=== PATIENT | female | born 1995 | race American Indian/Alaskan Native ===

== ENCOUNTER 2017-12-26 17:19 | Inpatient (IN) | payer OTHER ==
[2017-12-26] MEDS ORDERED: Oxycodone/Acetaminophen 5/325 mg Tab PO STA (17:55)
[2017-12-26] MEDS ORDERED: Piperacillin/Tazobact 3.375 gm 100 ML IV STA (17:55)
[2017-12-26] MEDS ORDERED: Sodium Chloride 0.9% 1,000 ML IV ONE (17:55)
--- NOTE | 2017-12-26 18:00 | C.PDOC ---
History Of Present Illness 22 y/o female presents to the ED for evaluation after being sent from Dr. Morales's office. Patient was evaluated for a painful swelling at the intergluteal fold region and was diagnosed with a pilonidal cyst. She presents to the ED for admission, antibiotics and is pending surgery. Patient states she took Motrin earlier today and is asking for something "stronger." She denies fever and chills at this time. Time Seen by Provider: 12/26/17 17:46 Chief Complaint (Nursing): Abnormal Skin Integrity History Per: Patient History/Exam Limitations: no limitations Onset/Duration Of Symptoms: Days Current Symptoms Are (Timing): Still Present Quality Of Symptoms: Painful, Swollen Additional History Per: Patient Past Medical History Reviewed: Historical Data, Nursing Documentation, Vital Signs Vital Signs: Last Vital Signs Temp 98 F 12/26/17 17:24 Pulse 109 H 12/26/17 17:24 Resp 20 12/26/17 17:24 BP 133/76 12/26/17 17:24 Pulse Ox 100 12/26/17 20:08 - Medical History PMH: No Chronic Diseases Denies: Chronic Kidney Disease Surgical History: No Surg Hx Family History: States: Unknown Family Hx - Social History Hx Alcohol Use: Yes Hx Substance Use: No Review Of Systems Constitutional: Negative for: Fever, Chills Skin: Positive for: Other (pilonidal cyst at intergluteal fold ) Physical Exam - Physical Exam Appears: Non-toxic, No Acute Distress, Other (morbidly obese ) Skin: Normal Color, Warm, Dry, Other (enlarged 8x8cm area in intergluteal cleft that is pouting red with white head ) Extremity: Normal ROM, Capillary Refill (less than 2 seconds ) Neurological/Psych: Oriented x3, Normal Speech, Normal Cognition ED Course And Treatment - Laboratory Results Result Diagrams: 12/26/17 18:32 12/26/17 18:32 Lab Interpretation: Abnormal (ua neg, tox + THC) Urine POC: Negative O2 Sat by Pulse Oximetry: 100 (on RA) Pulse Ox Interpretation: Normal Progress Note: Bloodwork, urinalysis, CT A/P ordered and reviewed. Percocet PO , Zosyn IV, and IV fluids administered. Medical Decision Making Medical Decision Making: discussion pt: pt complained of "not being direct admitted" and "expecting morphine upon arrival" Pt argumentative, asking to complain and be transferred to another facility Nursing and Rep's aware Though pt understood pending surgery in AM, pt's expectation of "direct admission" and her discontent w a hallway bed despite admission orders placed immediately after evaluation are difficult to satisfy to pt's expectations. Multiple re-visits w pt and mother @ bedside, and verbally abusive with this MD will preclude re-visits in ED Asked what she has taken for pain so far today, answered "Motmasha" Asked what may I offer her for pain relief, "I don't know" so Percocet suggested and ordered. After given percocet pt demanding morphine (which she did not specify during initial eval) Will defer double narcotics dosing in ED pending therapeutic effects of Percocet and UA/UDS/U-Preg which pt has not provided but has been requested. 1800: d/w Dr. Hemphill, ok to admit, specifies Zosyn. [id number] failed attempts to contact Computer System Technician to eval this Surgical pt- 1900: Dr Hemphill aware 2100: pt pending bed assignment. sleeping in HW1 bed A/P Tolerated Percocet and Zosyn well consider tox + THC pt's behavior in ED may be related to substance abuse, and misalligned expectations of ED experience. Disposition Doctor Will See Patient In The: Hospital Counseled Patient/Family Regarding: Studies Performed, Diagnosis - Disposition Disposition: HOSPITALIZED Disposition Time: 21:00 Condition: GOOD - Clinical Impression Clinical Impression: Pilonidal cyst with abscess, Cannabis abuse - Scribe Statement The provider has reviewed the documentation as recorded by the Scribe (jessica Mejia) Provider Attestation: All medical record entries made by the Scribe were at my direction and personally dictated by me. I have reviewed the chart and agree that the record accurately reflects my personal performance of the history, physical exam, medical decision making, and the department course for this patient. I have also personally directed, reviewed, and agree with the discharge instructions and disposition.
[2017-12-26] MEDS ORDERED: Oxycodone/Acetaminophen 5/325 mg Tab ONE (18:12)
[2017-12-26 18:40] LABS: BASO % 0.2 % (0.0-2.0); EOS # 0.1 K/uL (0.0-0.7); EOS % 0.8 % (0.0-4.0); HEMOGLOBIN 12.4 g/dL (11.0-16.0); LYMPH # 1.4 K/uL (1.0-4.3); LYMPH % 8.5 % (20.0-40.0); MEAN CELL VOLUME 86.6 fL (81.0-99.0); MEAN CORPUSCULAR HEMOGLOBIN 29.4 pg (27.0-31.0); MEAN PLATELET VOLUME 9.4 fL (7.2-11.7); MONO # 1.2 K/uL (0.0-0.8); NEUT # 13.8 K/uL (1.8-7.0); NEUT % 83.5 % (50.0-75.0); PLATELET COUNT 242 K/uL (130-400); RBC 4.22 Mil/uL (3.80-5.20); RED CELL DISTRIBUTION WIDTH 12.7 % (11.5-14.5); WHITE BLOOD COUNT 16.5 K/uL (4.8-10.8)
[2017-12-26 18:49] LABS: INR 1.3; PROTHROMBIN TIME 15.1 SECONDS (9.7-12.2)
[2017-12-26 18:50] LABS: ALB/GLOB RATIO 0.9 (1.0-2.1); ALBUMIN 3.9 g/dL (3.5-5.0); ALT/SGPT 21 U/L (9-52); AST/SGOT 18 U/L (14-36); BLOOD UREA NITROGEN 11 mg/dL (7-17); CALCIUM 8.9 mg/dl (8.6-10.4); GFR AFRICAN-AMERICAN > 60; GFR NON-AFRICAN AMERICAN > 60; LIPASE 26 U/L (23-300)
[2017-12-26 19:07] LABS: BANDS 1 % (0-2); EOSINOPHIL 2 % (0-4); LYMPHOCYTE 5 % (20-40); MONOCYTE 9 % (0-10); NEUTROPHIL 83 % (50-75); PLATELET ESTIMATE NORMAL (NORMAL); TOTAL CELLS COUNTED 100
[2017-12-26] MEDS ORDERED: Sodium Chloride 0.9% 1,000 ML ONE (19:08)
[2017-12-26] MEDS ORDERED: Iohexol 300 100 ML IJ ONE (19:56)
[2017-12-26] MEDS ORDERED: Piperacill/Tazo 3.375gm in Dex 3.375 GM/50 ML BAG IVPB ONE (20:00)
[2017-12-26 20:17] LABS: HCG,QUALITATIVE URINE NEGATIVE (NEGATIVE); SQUAMOUS EPITHIAL 9 /hpf (0-5); URINE BILIRUBIN NEGATIVE (NEGATIVE); URINE BLOOD 2+ (NEGATIVE); URINE CLARITY Hazy (Clear); URINE COLOR Yellow (YELLOW); URINE GLUCOSE (UA) NORMAL (Normal); URINE LEUKOCYTE ESTERASE NEG Leu/uL (Negative); URINE NITRATE NEGATIVE (NEGATIVE); URINE PROTEIN 1+ mg/dL (NEGATIVE)
[2017-12-26 20:39] LABS: BARBITURATES, UR NEGATIVE (NEGATIVE); BENZODIAZEPINES, UR NEGATIVE (NEGATIVE); OPIATES, UR NEGATIVE (NEGATIVE); PHENCYCLIDINE, UR NEGATIVE (NEGATIVE)
--- NOTE | 2017-12-26 21:41 | CP.PCM.CON ---
<Abby Garcia - Last Filed: 12/26/17 21:37> History of Present Illness - History of Present Illness History of Present Illness: General Surgery Dr. Morales 22 y/o F w/ PMHx of Pilonidal cyst presents to the ED at the direction of Dr. Morales. Pt was seen in office today and was found to have recurrent pilonidal cyst. Pt Instructed to go to the ED for admission w/ surgery planned for tomorrow, Saturday. Pt c/o pain at site w/ redness and swelling. Pt denies any drainage. Per pt, this episode is worse than the previous cyst. PMHX: see above NKDA Meds: reviewed in chart PSHx: I&D of pilonidal cyst SHx: denies tobacco, EtOH, drug use FHx: non-contributory Review of Systems - Review of Systems All systems: reviewed and no additional remarkable complaints except (see HPI) Past Patient History - Past Social History Smoking Status: Light Smoker < 10 Cigarettes Daily - CARDIAC Hx Cardiac Disorders: No - PULMONARY Hx Respiratory Disorders: No - HEENT Hx HEENT Problems: No - RENAL Hx Chronic Kidney Disease: No - ENDOCRINE/METABOLIC Hx Endocrine Disorders: No - HEMATOLOGICAL/ONCOLOGICAL Hx Blood Disorders: No - INTEGUMENTARY Hx Dermatological Problems: Yes - MUSCULOSKELETAL/RHEUMATOLOGICAL Hx Musculoskeletal Disorders: No - GASTROINTESTINAL Hx Gastrointestinal Disorders: No - GENITOURINARY/GYNECOLOGICAL Hx Genitourinary Disorders: No - PSYCHIATRIC Hx Substance Use: No - SURGICAL HISTORY Hx Surgeries: No - ANESTHESIA Hx Anesthesia: No Meds Allergies/Adverse Reactions: Allergies Allergy/AdvReac Type Severity Reaction Status Date / Time No Known Allergies Allergy Verified 12/26/17 17:27 Physical Exam - Constitutional Appears: Non-toxic, No Acute Distress - Head Exam Head Exam: NORMAL INSPECTION - Eye Exam Eye Exam: Normal appearance - ENT Exam ENT Exam: Mucous Membranes Moist - Respiratory Exam Respiratory Exam: NORMAL BREATHING PATTERN. absent: Accessory Muscle Use, Respiratory Distress - GI/Abdominal Exam GI & Abdominal Exam: Soft. absent: Tenderness - Rectal Exam Additional comments: (+)fluctuance, erythema, induration above gluteal cleft no sinus or drainage noted - Extremities Exam Extremities exam: Positive for: normal inspection - Neurological Exam Neurological exam: Alert, Oriented x3 - Psychiatric Exam Psychiatric exam: Normal Affect, Normal Mood - Skin Skin Exam: Dry, Intact, Warm Results - Vital Signs Recent Vital Signs: Last Vital Signs Temp 98 F 12/26/17 17:24 Pulse 109 H 12/26/17 17:24 Resp 20 12/26/17 17:24 BP 133/76 12/26/17 17:24 Pulse Ox 100 12/26/17 21:29 - Labs Result Diagrams: 12/26/17 18:32 12/26/17 18:32 Labs: Laboratory Results - last 24 hr 12/26/17 12/26/17 12/26/17 18:32 18:32 18:32 WBC 16.5 H RBC 4.22 Hgb 12.4 Hct 36.6 MCV 86.6 MCH 29.4 MCHC 34.0 RDW 12.7 Plt Count 242 MPV 9.4 Neut % (Auto) 83.5 H Lymph % (Auto) 8.5 L [place] % (Auto) 7.0 Eos % (Auto) 0.8 Baso % (Auto) 0.2 Neut # (Auto) 13.8 H Lymph # (Auto) 1.4 [place] # (Auto) 1.2 H Eos # (Auto) 0.1 Baso # (Auto) 0.0 Neutrophils % (Manual) 83 H Band Neutrophils % 1 Lymphocytes % (Manual) 5 L Monocytes % (Manual) 9 Eosinophils % (Manual) 2 Platelet Estimate Normal PT 15.1 H INR 1.3 APTT 29 Sodium 137 Potassium 3.9 Chloride 98 Carbon Dioxide 28 Anion Gap 15 BUN 11 Creatinine 0.7 Est GFR ( Amer) > 60 Est GFR (Non-Af Amer) > 60 Random Glucose 115 H Calcium 8.9 Total Bilirubin 0.6 AST 18 ALT 21 Alkaline Phosphatase 51 Total Protein 8.1 Albumin 3.9 Globulin 4.3 H Albumin/Globulin Ratio 0.9 L Lipase 26 Urine Color Urine Clarity Urine pH Ur Specific [place] Urine Protein Urine Glucose (UA) Urine Ketones Urine Blood Urine Nitrate Urine Bilirubin Urine Urobilinogen Ur Leukocyte Esterase Urine WBC (Auto) Urine RBC (Auto) Ur Squamous Epith Cells Urine HCG, Qual Urine Opiates Screen Urine Methadone Screen Ur Barbiturates Screen Ur Phencyclidine Scrn Ur Amphetamines Screen U Benzodiazepines Scrn U Oth Cocaine Metabols U Cannabinoids Screen 12/26/17 12/26/17 20:08 20:08 WBC RBC Hgb Hct MCV MCH MCHC RDW Plt Count MPV Neut % (Auto) Lymph % (Auto) [place] % (Auto) Eos % (Auto) Baso % (Auto) Neut # (Auto) Lymph # (Auto) [place] # (Auto) Eos # (Auto) Baso # (Auto) Neutrophils % (Manual) Band Neutrophils % Lymphocytes % (Manual) Monocytes % (Manual) Eosinophils % (Manual) Platelet Estimate PT INR APTT Sodium Potassium Chloride Carbon Dioxide Anion Gap BUN Creatinine Est GFR ( Amer) Est GFR (Non-Af Amer) Random Glucose Calcium Total Bilirubin AST ALT Alkaline Phosphatase Total Protein Albumin Globulin Albumin/Globulin Ratio Lipase Urine Color Yellow Urine Clarity Hazy Urine pH 5.0 Ur Specific [place] 1.034 H Urine Protein 1+ H Urine Glucose (UA) Normal Urine Ketones Negative Urine Blood 2+ H Urine Nitrate Negative Urine Bilirubin Negative Urine Urobilinogen 4.0 H Ur Leukocyte Esterase Neg Urine WBC (Auto) 8 H Urine RBC (Auto) 18 H Ur Squamous Epith Cells 9 H Urine HCG, Qual Negative Urine Opiates Screen Negative Urine Methadone Screen Negative Ur Barbiturates Screen Negative Ur Phencyclidine Scrn Negative Ur Amphetamines Screen Negative U Benzodiazepines Scrn Negative U Oth Cocaine Metabols Negative U Cannabinoids Screen Positive H - Imaging and Cardiology CT scan - abdomen Status: Pending Assessment & Plan - Assessment and Plan (Free Text) Assessment: 22 y/o F w/ pilonidal cyst - NPO after MN - IVF - IV Abx - pain management - anti-emetic - monitor vitals - OR Saturday for I&D of pilonidal cyst Pt discussed w/ Dr. Morales <Edison Morales - Last Filed: 12/29/17 18:31> Results - Vital Signs Recent Vital Signs: Last Vital Signs Temp 98.4 F 12/29/17 08:00 Pulse 72 12/29/17 08:00 Resp 20 12/29/17 08:00 BP 112/68 12/29/17 08:00 Pulse Ox 100 12/29/17 08:00 - Labs Result Diagrams: 12/28/17 11:35 12/28/17 11:35 Attending/Attestation - Attestation I have personally seen and examined this patient.: Yes I have fully participated in the care of the patient.: Yes I have reviewed all pertinent clinical information: Yes Notes (Text): Pt was seen and examined at bedside Agree with above note and assessment Pt with Gluteal pain and severe tenderness Labs and radiology reviewed Ass: Pilonidal cyst abscess with severe cellulitis OR for I & D and Debridement of cyst absces Consnet NPO, IVF IV antibiotics Plan d.w pt in detail Risk and benefit explained in detail.
[2017-12-26] MEDS ORDERED: Oxycodone/Acetaminophen 5/325 mg Tab PO PRN (21:45)
[2017-12-26] MEDS ORDERED: Piperacillin/Tazobact 3.375 GM in Sodium Chloride 100 ML IVPB SCH (22:00)
[2017-12-26] MEDS: HYDROmorphone 0.5 mg/0.5 ml ISec IVP PRN (22:19)
[2017-12-26] MEDS: Sodium Chloride 0.9% 1,000 ML IV SCH (22:20)
[2017-12-26] MEDS ORDERED: metroNIDAZOLE IV 500 mg/100 ml 500 MG/100 ML BAG ONE (22:23)
--- NOTE | 2017-12-26 22:26 | CT ---
EXAM: CT Abdomen and Pelvis With Intravenous Contrast CLINICAL HISTORY: 22 years old, female; Signs and symptoms; Mass, lump, or swelling; Other: Butock region; Additional info: Abd pain, abn lft's, weight loss/ anemia, ? ca TECHNIQUE: Axial computed tomography images of the abdomen and pelvis with intravenous contrast. All CT scans at this facility use one or more dose reduction techniques, viz.: automated exposure control; ma/kV adjustment per patient size (including targeted exams where dose is matched to indication; i.e. head); or iterative reconstruction technique. Coronal and sagittal reformatted images were created and reviewed. CONTRAST: 100 mL of omnipaque 300 administered intravenously. COMPARISON: No relevant prior studies available. FINDINGS: Lower thorax: Minimal atelectasis. ABDOMEN: Liver: Unremarkable. No mass. Gallbladder and bile ducts: No calcified stones. No ductal dilation. Pancreas: No ductal dilation. No mass. Spleen: No splenomegaly. Adrenals: No mass. Kidneys and ureters: No mass. No hydronephrosis. Stomach and bowel: No definite mural thickening. No obstruction. Appendix: No findings to suggest acute appendicitis. PELVIS: Bladder: Unremarkable. Reproductive: Unremarkable as visualized. ABDOMEN and PELVIS: Intraperitoneal space: No significant fluid collection. No free air. Bones/joints: No acute fracture. Soft tissues: 4.2 x 6.2 x 5.8 cm peripherally enhancing fluid collection within midline posterior pelvic wall. [id number] stranding within adjacent fat. Mild overlying skin thickening. Mild dependent fluid within subcutaneous tissues posterior abdominal/pelvic wall. Vasculature: Unremarkable. No aneurysm. Lymph nodes: No pathologically enlarged lymph nodes. IMPRESSION: 1. Findings compatible with abscess within posterior pelvic wall. DDX: Hematoma, cystic neoplasm. Clinical correlation is needed. 2. Incidental/non-acute findings are described above.
[2017-12-26] MEDS: metroNIDAZOLE IV 500 mg/100 ml 500 MG/100 ML BAG IVPB SCH (22:47)
--- NOTE | 2017-12-27 00:39 | CP.PCM.HP ---
<Abby Garcia - Last Filed: 12/27/17 00:35> History of Present Illness - History of Present Illness History of Present Illness: General Surgery Dr. Morales 22 y/o F w/ PMHx of Pilonidal cyst presents to the ED at the direction of Dr. Morales. Pt was seen in office today and was found to have recurrent pilonidal cyst. Pt Instructed to go to the ED for admission w/ surgery planned for tomorrow, Saturday. Pt c/o pain at site w/ redness and swelling. Pt denies any drainage. Per pt, this episode is worse than the previous cyst. PMHX: see above NKDA Meds: reviewed in chart PSHx: I&D of pilonidal cyst SHx: denies tobacco, EtOH, drug use FHx: non-contributory Present on Admission - Present on Admission Any Indicators Present on Admission: No Review of Systems - Review of Systems All systems: reviewed and no additional remarkable complaints except (See HPI) Past Patient History - Past Social History Smoking Status: Light Smoker < 10 Cigarettes Daily - CARDIAC Hx Cardiac Disorders: No - PULMONARY Hx Respiratory Disorders: No - HEENT Hx HEENT Problems: No - RENAL Hx Chronic Kidney Disease: No - ENDOCRINE/METABOLIC Hx Endocrine Disorders: No - HEMATOLOGICAL/ONCOLOGICAL Hx Blood Disorders: No - INTEGUMENTARY Hx Dermatological Problems: Yes - MUSCULOSKELETAL/RHEUMATOLOGICAL Hx Musculoskeletal Disorders: No - GASTROINTESTINAL Hx Gastrointestinal Disorders: No - GENITOURINARY/GYNECOLOGICAL Hx Genitourinary Disorders: No - PSYCHIATRIC Hx Substance Use: No - SURGICAL HISTORY Hx Surgeries: No - ANESTHESIA Hx Anesthesia: No Meds Allergies/Adverse Reactions: Allergies Allergy/AdvReac Type Severity Reaction Status Date / Time No Known Allergies Allergy Verified 12/26/17 17:27 Physical Exam - Constitutional Appears: Non-toxic, No Acute Distress - Head Exam Head Exam: NORMAL INSPECTION - Eye Exam Eye Exam: Normal appearance - ENT Exam ENT Exam: Mucous Membranes Moist - Respiratory Exam Respiratory Exam: NORMAL BREATHING PATTERN. absent: Accessory Muscle Use, Respiratory Distress - GI/Abdominal Exam GI & Abdominal Exam: Soft. absent: Tenderness - Rectal Exam Additional comments: (+)fluctuance, erythema, induration above gluteal cleft no sinus or drainage noted - Extremities Exam Extremities exam: Positive for: normal inspection - Neurological Exam Neurological exam: Alert, Oriented x3 - Psychiatric Exam Psychiatric exam: Normal Affect, Normal Mood - Skin Skin Exam: Dry, Intact, Normal Color, Warm Results - Vital Signs Recent Vital Signs: Last Vital Signs Temp 98 F 12/26/17 17:24 Pulse 91 H 12/26/17 21:00 Resp 16 12/26/17 21:00 BP 106/66 12/26/17 21:00 Pulse Ox 100 12/26/17 21:29 - Labs Result Diagrams: 12/26/17 18:32 12/26/17 18:32 Labs: Laboratory Results - last 24 hr 12/26/17 12/26/17 12/26/17 18:32 18:32 18:32 WBC 16.5 H RBC 4.22 Hgb 12.4 Hct 36.6 MCV 86.6 MCH 29.4 MCHC 34.0 RDW 12.7 Plt Count 242 MPV 9.4 Neut % (Auto) 83.5 H Lymph % (Auto) 8.5 L [place] % (Auto) 7.0 Eos % (Auto) 0.8 Baso % (Auto) 0.2 Neut # (Auto) 13.8 H Lymph # (Auto) 1.4 [place] # (Auto) 1.2 H Eos # (Auto) 0.1 Baso # (Auto) 0.0 Neutrophils % (Manual) 83 H Band Neutrophils % 1 Lymphocytes % (Manual) 5 L Monocytes % (Manual) 9 Eosinophils % (Manual) 2 Platelet Estimate Normal PT 15.1 H INR 1.3 APTT 29 Sodium 137 Potassium 3.9 Chloride 98 Carbon Dioxide 28 Anion Gap 15 BUN 11 Creatinine 0.7 Est GFR ( Amer) > 60 Est GFR (Non-Af Amer) > 60 Random Glucose 115 H Calcium 8.9 Total Bilirubin 0.6 AST 18 ALT 21 Alkaline Phosphatase 51 Total Protein 8.1 Albumin 3.9 Globulin 4.3 H Albumin/Globulin Ratio 0.9 L Lipase 26 Urine Color Urine Clarity Urine pH Ur Specific [place] Urine Protein Urine Glucose (UA) Urine Ketones Urine Blood Urine Nitrate Urine Bilirubin Urine Urobilinogen Ur Leukocyte Esterase Urine WBC (Auto) Urine RBC (Auto) Ur Squamous Epith Cells Urine HCG, Qual Urine Opiates Screen Urine Methadone Screen Ur Barbiturates Screen Ur Phencyclidine Scrn Ur Amphetamines Screen U Benzodiazepines Scrn U Oth Cocaine Metabols U Cannabinoids Screen 12/26/17 12/26/17 20:08 20:08 WBC RBC Hgb Hct MCV MCH MCHC RDW Plt Count MPV Neut % (Auto) Lymph % (Auto) [place] % (Auto) Eos % (Auto) Baso % (Auto) Neut # (Auto) Lymph # (Auto) [place] # (Auto) Eos # (Auto) Baso # (Auto) Neutrophils % (Manual) Band Neutrophils % Lymphocytes % (Manual) Monocytes % (Manual) Eosinophils % (Manual) Platelet Estimate PT INR APTT Sodium Potassium Chloride Carbon Dioxide Anion Gap BUN Creatinine Est GFR ( Amer) Est GFR (Non-Af Amer) Random Glucose Calcium Total Bilirubin AST ALT Alkaline Phosphatase Total Protein Albumin Globulin Albumin/Globulin Ratio Lipase Urine Color Yellow Urine Clarity Hazy Urine pH 5.0 Ur Specific [place] 1.034 H Urine Protein 1+ H Urine Glucose (UA) Normal Urine Ketones Negative Urine Blood 2+ H Urine Nitrate Negative Urine Bilirubin Negative Urine Urobilinogen 4.0 H Ur Leukocyte Esterase Neg Urine WBC (Auto) 8 H Urine RBC (Auto) 18 H Ur Squamous Epith Cells 9 H Urine HCG, Qual Negative Urine Opiates Screen Negative Urine Methadone Screen Negative Ur Barbiturates Screen Negative Ur Phencyclidine Scrn Negative Ur Amphetamines Screen Negative U Benzodiazepines Scrn Negative U Oth Cocaine Metabols Negative U Cannabinoids Screen Positive H - Imaging and Cardiology CT scan - abdomen Status: Image reviewed by me, Report reviewed by me Assessment & Plan - Assessment and Plan (Free Text) Assessment: 22 y/o F w/ pilonidal cyst - NPO after MN - IVF - IV Abx - pain management - anti-emetic - monitor vitals - OR Saturday for I&D of pilonidal cyst Pt discussed w/ Dr. Andrew Garcia DO PGY2 - Date & Time Date: 12/26/17 Time: 20:45 <Edison Morales - Last Filed: 12/29/17 18:32> Results - Vital Signs Recent Vital Signs: Last Vital Signs Temp 98.4 F 12/29/17 08:00 Pulse 72 12/29/17 08:00 Resp 20 12/29/17 08:00 BP 112/68 12/29/17 08:00 Pulse Ox 100 12/29/17 08:00 - Labs Result Diagrams: 12/28/17 11:35 12/28/17 11:35 Attending/Attestation - Attestation I have personally seen and examined this patient.: Yes I have fully participated in the care of the patient.: Yes I have reviewed all pertinent clinical information: Yes Notes (Text): Pt was seen and examined at bedside Agree with above note and assessment Pt with Gluteal pain and severe tenderness Labs and radiology reviewed Ass: Pilonidal cyst abscess with severe cellulitis OR for I & D and Debridement of cyst absces Consnet NPO, IVF IV antibiotics Plan d.w pt in detail Risk and benefit explained in detail.
[2017-12-27] MEDS: HYDROmorphone 0.5 mg/0.5 ml ISec IVP PRN (03:14)
[2017-12-27] MEDS: Piperacill/Tazo 3.375gm in Dex 3.375 GM/50 ML BAG IVPB SCH ×4 (03:26→21:00)
[2017-12-27] MEDS ORDERED: HYDROmorphone 0.5 mg/0.5 ml ISec IVP STA (04:49)
[2017-12-27] MEDS: metroNIDAZOLE IV 500 mg/100 ml 500 MG/100 ML BAG IVPB SCH ×3 (07:00→21:28)
[2017-12-27 07:58] LABS: BASO % 0.3 % (0.0-2.0); EOS # 0.2 K/uL (0.0-0.7); HEMOGLOBIN 11.1 g/dL (11.0-16.0); LYMPH # 1.3 K/uL (1.0-4.3); LYMPH % 8.2 % (20.0-40.0); MEAN CELL VOLUME 86.8 fL (81.0-99.0); MEAN CORPUSCULAR HEMOGLOBIN 29.4 pg (27.0-31.0); MEAN CORPUSCULAR HGB CONC 33.9 g/dL (33.0-37.0); MEAN PLATELET VOLUME 9.9 fL (7.2-11.7); MONO # 1.3 K/uL (0.0-0.8); MONO % 8.5 % (0.0-10.0); NEUT # 12.6 K/uL (1.8-7.0); PLATELET COUNT 221 K/uL (130-400); RBC 3.76 Mil/uL (3.80-5.20); RED CELL DISTRIBUTION WIDTH 12.6 % (11.5-14.5); WHITE BLOOD COUNT 15.4 K/uL (4.8-10.8)
[2017-12-27 07:59] LABS: INR 1.5; PROTHROMBIN TIME 16.5 SECONDS (9.7-12.2)
[2017-12-27 08:38] LABS: BLOOD UREA NITROGEN 10 mg/dL (7-17); CALCIUM 7.8 mg/dl (8.6-10.4); GFR AFRICAN-AMERICAN > 60; GFR NON-AFRICAN AMERICAN > 60
[2017-12-27] MEDS ORDERED: ceFAZolin 1 gm in NS 0 GM/0 ML BAG IVPB ONE (09:48)
[2017-12-27] MEDS ORDERED: Bupivacaine HCl 0.25% PF (10 ml) Inj ONE ×2 (09:48→10:47)
[2017-12-27] MEDS ORDERED: Lidocaine/Epinephrine 1% 1:100000 10 ML IJ ONE ×2 (09:49→10:47)
[2017-12-27] MEDS ORDERED: ceFAZolin IV 2 gm in Dextrose 0 GM/0 ML BAG IVPB ONE (09:49)
[2017-12-27 09:55] LABS: LYMPHOCYTE 9 % (20-40); MONOCYTE 5 % (0-10); NEUTROPHIL 86 % (50-75); PLATELET ESTIMATE NORMAL (NORMAL); TOTAL CELLS COUNTED 100
[2017-12-27] MEDS ORDERED: Lactated Ringer's 1,000 ML IV ONE ×2 (10:19→10:51)
[2017-12-27] MEDS ORDERED: Midazolam 2 MG/2 ML VIAL ONE (10:23)
[2017-12-27] MEDS ORDERED: Rocuronium 10 mg/ml (5 ml) ONE (10:23)
[2017-12-27] MEDS ORDERED: Lidocaine Hydrochloride 5 ML INJ ONE (10:23)
[2017-12-27] MEDS ORDERED: Succinylcholine Chloride 20 mg/ml Syr (5 ml) IV ONE (10:23)
[2017-12-27] MEDS ORDERED: Propofol 10 mg/ml Inj (20 ML) ONE ×2 (10:23→10:45)
[2017-12-27] MEDS ORDERED: HYDROmorphone 0.5 mg/0.5 ml ISec IVP PRN (10:54)
--- NOTE | 2017-12-27 10:54 | PCM.SURG1 ---
Surgeon's Initial Post Op Note - Surgeon's Notes Surgeon: Dr. Morales Creative Director: Carly Mitchell,PGY-1 Type of Anesthesia: IV Sedation Pre-Operative Diagnosis: Pilonidal cyst and Abscess of superior gluteal cleft Operative Findings: See op report Post-Operative Diagnosis: pilonidal cyst and abscess of superior gluteal cleft Operation Performed: Incision and drainage of abscess, debridement of wound cavity Specimen/Specimens Removed: abscess wall tissue Estimated Blood Loss: EBL {In ML}: 10 Blood Products Given: N/A Drains Used: No Drains Post-Op Condition: Good Date of Surgery/Procedure: 12/27/17 Time of Surgery/Procedure: 10:54
[2017-12-27] MEDS: Sodium Chloride 0.9% 1,000 ML IV SCH ×3 (12:09→21:31)
[2017-12-28] MEDS: Sodium Chloride 0.9% 1,000 ML IV SCH ×5 (00:01→20:30)
[2017-12-28] MEDS: Piperacill/Tazo 3.375gm in Dex 3.375 GM/50 ML BAG IVPB SCH ×3 (02:54→14:14)
[2017-12-28] MEDS: metroNIDAZOLE IV 500 mg/100 ml 500 MG/100 ML BAG IVPB SCH ×3 (05:58→23:00)
[2017-12-28 11:44] LABS: BASO % 0.4 % (0.0-2.0); EOS # 0.3 K/uL (0.0-0.7); EOS % 2.9 % (0.0-4.0); HEMOGLOBIN 10.2 g/dL (11.0-16.0); LYMPH # 2.3 K/uL (1.0-4.3); LYMPH % 19.7 % (20.0-40.0); MEAN CELL VOLUME 87.7 fL (81.0-99.0); MEAN CORPUSCULAR HGB CONC 34.2 g/dL (33.0-37.0); MEAN PLATELET VOLUME 9.7 fL (7.2-11.7); MONO # 1.1 K/uL (0.0-0.8); MONO % 9.8 % (0.0-10.0); NEUT # 7.8 K/uL (1.8-7.0); NEUT % 67.2 % (50.0-75.0); NRBC % 0.1 % (0.0-2.0); RBC 3.39 Mil/uL (3.80-5.20); RED CELL DISTRIBUTION WIDTH 12.8 % (11.5-14.5); WHITE BLOOD COUNT 11.5 K/uL (4.8-10.8)
[2017-12-28 12:11] LABS: BLOOD UREA NITROGEN 13 mg/dL (7-17); CALCIUM 7.5 mg/dl (8.6-10.4); GFR AFRICAN-AMERICAN > 60; GFR NON-AFRICAN AMERICAN > 60
[2017-12-28 17:26] VITALS: RESP 20
--- NOTE | 2017-12-28 18:18 | CP.PCM.PN ---
<Deon Multani - Last Filed: 12/28/17 18:16> Subjective - Date & Time of Evaluation Date of Evaluation: 12/28/17 Time of Evaluation: 15:30 - Subjective Subjective: General Surgery Pt S&E, JEFFEO. Had some drainage and is requiring pain meds on schedule. Otherwise no issues. Objective - Vital Signs/Intake and Output Vital Signs (last 24 hours): Temp Pulse Resp BP Pulse Ox 98.1 F 87 20 132/77 98 12/28/17 15:30 12/28/17 15:30 12/28/17 15:30 12/28/17 15:30 12/28/17 15:30 Intake and Output: 12/28/17 12/28/17 06:59 18:59 Intake Total 2715 1400 Balance 2715 1400 - Medications Medications: Current Medications Docusate Sodium (Colace) 100 mg PO BID [facility] Last Admin: 12/28/17 17:09 Dose: 100 mg Hydromorphone HCl (Dilaudid) 0.5 mg IVP Q3 PRN PRN Reason: Pain, severe (8-10) Last Admin: 12/27/17 03:14 Dose: 0.5 mg Sodium Chloride (Sodium Chloride 0.9%) 1,000 mls @ 125 mls/hr IV .Q8H [facility] Last Admin: 12/28/17 15:00 Dose: Not Given Metronidazole (Flagyl) 500 mg in 100 mls @ 100 mls/hr IVPB Q8 [facility] Last Admin: 12/28/17 14:59 Dose: 100 mls/hr Piperacillin Sod/Tazobactam (Sod 3.375 gm/ Sodium Chloride) 100 mls @ 100 mls/ hr IVPB Q6H [facility] Ketorolac Tromethamine (Toradol) 30 mg IV Q6 [facility] Stop: 01/01/18 06:01 Last Admin: 12/28/17 17:07 Dose: 30 mg Ondansetron HCl (Zofran Inj) 4 mg IVP Q4 PRN PRN Reason: Nausea/Vomiting Oxycodone/Acetaminophen (Percocet 5/325 Mg Tab) 1 tab PO Q4 PRN PRN Reason: Pain, moderate (4-7) Stop: 12/29/17 21:46 - Labs Labs: 12/28/17 11:35 12/28/17 11:35 PT 16.5 SECONDS (9.7-12.2) H 12/27/17 07:44 INR 1.5 12/27/17 07:44 APTT 27 SECONDS (21-34) 12/27/17 07:44 - Constitutional Appears: Non-toxic, No Acute Distress - Head Exam Head Exam: ATRAUMATIC, NORMOCEPHALIC - Eye Exam Eye Exam: EOMI. absent: Scleral icterus - Respiratory Exam Respiratory Exam: NORMAL BREATHING PATTERN. absent: Respiratory Distress - GI/Abdominal Exam GI & Abdominal Exam: Soft. absent: Distended, Tenderness - Back Exam Back Exam: tenderness (around incision, L > R, some onduration on L) Additional comments: Incision with packing inside - Neurological Exam Neurological Exam: Alert, Awake, Oriented x3 - Skin Skin Exam: Dry, Warm Assessment and Plan - Assessment and Plan (Free Text) Assessment: 22F s/p I&D of pilonidal cyst Plan: Dressing and packing changed analgesia PRN Packing changes Q2-3 Arrange Home care nurse to help with packing changes PGY4 <Edison Morales B - Last Filed: 12/29/17 18:33> Objective - Vital Signs/Intake and Output Vital Signs (last 24 hours): Temp Pulse Resp BP Pulse Ox 98.4 F 72 20 112/68 100 12/29/17 08:00 12/29/17 08:00 12/29/17 08:00 12/29/17 08:00 12/29/17 08:00 Intake and Output: 12/29/17 12/29/17 06:59 18:59 Intake Total 2875 1350 Balance 2875 1350 - Labs Labs: 12/28/17 11:35 12/28/17 11:35 PT 16.5 SECONDS (9.7-12.2) H 12/27/17 07:44 INR 1.5 12/27/17 07:44 APTT 27 SECONDS (21-34) 12/27/17 07:44 Attending/Attestation - Attestation I have fully participated in the care of the patient.: Yes I have reviewed all pertinent clinical information, including history, physical exam and plan: Yes Notes (Text): Local wound care IV antibiotics Reg diet Plan d.w nurse in detail
[2017-12-28] MEDS: Piperacillin/Tazobact 3.375 GM in Sodium Chloride 0.9% 100 ML IVPB SCH (22:46)
[2017-12-29 02:21] VITALS: O2SAT 100
[2017-12-29] MEDS: Piperacillin/Tazobact 3.375 GM in Sodium Chloride 0.9% 100 ML IVPB SCH ×3 (03:45→15:19)
[2017-12-29] MEDS: metroNIDAZOLE IV 500 mg/100 ml 500 MG/100 ML BAG IVPB SCH ×2 (06:08→13:54)
[2017-12-29] MEDS: Sodium Chloride 0.9% 1,000 ML IV SCH ×2 (06:09→09:09)
--- NOTE | 2017-12-29 08:46 | CP.PCM.PN ---
<Gautam Galvin - Last Filed: 12/29/17 08:43> Subjective - Date & Time of Evaluation Date of Evaluation: 12/29/17 Time of Evaluation: 06:30 - Subjective Subjective: General Surgery- Dr. Morales Patient seen and examined at bedside this AM. No acute events overnight. no acute complaints. Scheduled pain meds required. Laying prone for pain relief Objective - Vital Signs/Intake and Output Vital Signs (last 24 hours): Temp Pulse Resp BP Pulse Ox 95.4 F L 80 20 126/65 100 12/28/17 23:35 12/28/17 23:35 12/28/17 23:35 12/28/17 23:35 12/28/17 23:35 Intake and Output: 12/29/17 12/29/17 06:59 18:59 Intake Total 2875 Balance 2875 - Medications Medications: Current Medications Docusate Sodium (Colace) 100 mg PO BID [facility] Last Admin: 12/28/17 17:09 Dose: 100 mg Hydromorphone HCl (Dilaudid) 0.5 mg IVP Q3 PRN PRN Reason: Pain, severe (8-10) Last Admin: 12/27/17 03:14 Dose: 0.5 mg Sodium Chloride (Sodium Chloride 0.9%) 1,000 mls @ 125 mls/hr IV .Q8H [facility] Last Admin: 12/29/17 06:09 Dose: Not Given Metronidazole (Flagyl) 500 mg in 100 mls @ 100 mls/hr IVPB Q8 [facility] Last Admin: 12/29/17 06:08 Dose: 100 mls/hr Piperacillin Sod/Tazobactam (Sod 3.375 gm/ Sodium Chloride) 100 mls @ 100 mls/ hr IVPB Q6H [facility] Last Admin: 12/29/17 03:45 Dose: 100 mls/hr Ondansetron HCl (Zofran Inj) 4 mg IVP Q4 PRN PRN Reason: Nausea/Vomiting Oxycodone/Acetaminophen (Percocet 5/325 Mg Tab) 1 tab PO Q4 PRN PRN Reason: Pain, moderate (4-7) Stop: 12/29/17 21:46 - Labs Labs: 12/28/17 11:35 12/28/17 11:35 PT 16.5 SECONDS (9.7-12.2) H 12/27/17 07:44 INR 1.5 12/27/17 07:44 APTT 27 SECONDS (21-34) 12/27/17 07:44 - Constitutional Appears: Non-toxic, No Acute Distress - Head Exam Head Exam: ATRAUMATIC - Eye Exam Eye Exam: EOMI. absent: Scleral icterus - Respiratory Exam Respiratory Exam: NORMAL BREATHING PATTERN. absent: Accessory Muscle Use, Respiratory Distress - Cardiovascular Exam Cardiovascular Exam: +S1, +S2. absent: Bradycardia, Tachycardia - GI/Abdominal Exam GI & Abdominal Exam: Soft. absent: Distended, Firm, Guarding, Rigid, Tenderness - Extremities Exam Additional comments: Pilondial cyst dressing C/D/I - Back Exam Additional comments: pilondial cyst I&D site dressing C/D/I - Skin Skin Exam: Warm Assessment and Plan - Assessment and Plan (Free Text) Assessment: 22F s/p I&D of pilonidal cyst POD#2 Plan: Pain control PRN Abx Packing changes q2-3days home care nurse to help w/ packing further recs per Dr. Morales surgical attending Gautam Galvin PGY1 <Edison Morales - Last Filed: 12/29/17 18:37> Objective - Vital Signs/Intake and Output Vital Signs (last 24 hours): Temp Pulse Resp BP Pulse Ox 98.4 F 72 20 112/68 100 12/29/17 08:00 12/29/17 08:00 12/29/17 08:00 12/29/17 08:00 12/29/17 08:00 Intake and Output: 12/29/17 12/29/17 06:59 18:59 Intake Total 2875 1350 Balance 2875 1350 - Labs Labs: 12/28/17 11:35 12/28/17 11:35 PT 16.5 SECONDS (9.7-12.2) H 12/27/17 07:44 INR 1.5 12/27/17 07:44 APTT 27 SECONDS (21-34) 12/27/17 07:44 Attending/Attestation - Attestation I have personally seen and examined this patient.: Yes I have fully participated in the care of the patient.: Yes I have reviewed all pertinent clinical information, including history, physical exam and plan: Yes Notes (Text): Reg diet Local wound care VNS for wound care at home IV antibiotics Plan d.w nurse in detail
[2017-12-29 09:24] VITALS: BP 112/68; PULSE 72; TEMP 98.4
--- NOTE | 2017-12-29 17:08 | CP.PCM.DIS ---
Provider - Provider Date of Admission: 12/26/17 17:56 Attending physician: Edison Morales MD Time Spent in preparation of Discharge (in minutes): 45 Hospital Course - Lab Results Lab Results: Micro Results 12/27/17 11:10 Abscess - Cyst Gram Stain - Final 12/27/17 11:10 Abscess - Cyst Wound Culture - Final Coagulase Neg Staphylococcus 12/26/17 18:30 Blood Blood Culture - Preliminary NO GROWTH AFTER 48 HOURS 12/26/17 18:20 Blood Blood Culture - Preliminary NO GROWTH AFTER 48 HOURS Most Recent Lab Values WBC 11.5 K/uL (4.8-10.8) H 12/28/17 11:35 RBC 3.39 Mil/uL (3.80-5.20) L 12/28/17 11:35 Hgb 10.2 g/dL (11.0-16.0) L 12/28/17 11:35 Hct 29.7 % (34.0-47.0) L 12/28/17 11:35 MCV 87.7 fL (81.0-99.0) 12/28/17 11:35 MCH 30.0 pg (27.0-31.0) 12/28/17 11:35 MCHC 34.2 g/dL (33.0-37.0) 12/28/17 11:35 RDW 12.8 % (11.5-14.5) 12/28/17 11:35 Plt Count 212 K/uL (130-400) 12/28/17 11:35 MPV 9.7 fL (7.2-11.7) 12/28/17 11:35 Neut % (Auto) 67.2 % (50.0-75.0) 12/28/17 11:35 Lymph % (Auto) 19.7 % (20.0-40.0) L 12/28/17 11:35 Wilkinson % (Auto) 9.8 % (0.0-10.0) 12/28/17 11:35 Eos % (Auto) 2.9 % (0.0-4.0) 12/28/17 11:35 Baso % (Auto) 0.4 % (0.0-2.0) 12/28/17 11:35 Neut # (Auto) 7.8 K/uL (1.8-7.0) H 12/28/17 11:35 Lymph # (Auto) 2.3 K/uL (1.0-4.3) 12/28/17 11:35 Wilkinson # (Auto) 1.1 K/uL (0.0-0.8) H 12/28/17 11:35 Eos # (Auto) 0.3 K/uL (0.0-0.7) 12/28/17 11:35 Baso # (Auto) 0.0 K/uL (0.0-0.2) 12/28/17 11:35 Neutrophils % (Manual) 86 % (50-75) H 12/27/17 07:44 Band Neutrophils % 1 % (0-2) 12/26/17 18:32 Lymphocytes % (Manual) 9 % (20-40) L 12/27/17 07:44 Monocytes % (Manual) 5 % (0-10) 12/27/17 07:44 Eosinophils % (Manual) 2 % (0-4) 12/26/17 18:32 Platelet Estimate Normal (NORMAL) 12/27/17 07:44 PT 16.5 SECONDS (9.7-12.2) H 12/27/17 07:44 INR 1.5 12/27/17 07:44 APTT 27 SECONDS (21-34) 12/27/17 07:44 Sodium 136 mmol/L (132-148) 12/28/17 11:35 Potassium 3.7 mmol/L (3.6-5.2) 12/28/17 11:35 Chloride 104 mmol/L (98-107) 12/28/17 11:35 Carbon Dioxide 24 mmol/L (22-30) 12/28/17 11:35 Anion Gap 11 (10-20) 12/28/17 11:35 BUN 13 mg/dL (7-17) 12/28/17 11:35 Creatinine 0.7 mg/dL (0.7-1.2) 12/28/17 11:35 Est GFR ( Amer) > 60 12/28/17 11:35 Est GFR (Non-Af Amer) > 60 12/28/17 11:35 Random Glucose 77 mg/dL (65-105) 12/28/17 11:35 Calcium 7.5 mg/dl (8.6-10.4) L 12/28/17 11:35 Total Bilirubin 0.6 mg/dL (0.2-1.3) 12/26/17 18:32 AST 18 U/L (14-36) 12/26/17 18:32 ALT 21 U/L (9-52) 12/26/17 18:32 Alkaline Phosphatase 51 U/L (38-126) 12/26/17 18:32 Total Protein 8.1 g/dL (6.3-8.3) 12/26/17 18:32 Albumin 3.9 g/dL (3.5-5.0) 12/26/17 18:32 Globulin 4.3 gm/dL (2.2-3.9) H 12/26/17 18:32 Albumin/Globulin Ratio 0.9 (1.0-2.1) L 12/26/17 18:32 Lipase 26 U/L (23-300) 12/26/17 18:32 Urine Color Yellow (YELLOW) 12/26/17 20:08 Urine Clarity Hazy (Clear) 12/26/17 20:08 Urine pH 5.0 (5.0-8.0) 12/26/17 20:08 Ur Specific Struthers 1.034 (1.003-1.030) H 12/26/17 20:08 Urine Protein 1+ mg/dL (NEGATIVE) H 12/26/17 20:08 Urine Glucose (UA) Normal mg/dL (Normal) 12/26/17 20:08 Urine Ketones Negative mg/dL (NEGATIVE) 12/26/17 20:08 Urine Blood 2+ (NEGATIVE) H 12/26/17 20:08 Urine Nitrate Negative (NEGATIVE) 12/26/17 20:08 Urine Bilirubin Negative (NEGATIVE) 12/26/17 20:08 Urine Urobilinogen 4.0 mg/dL (0.2-1.0) H 12/26/17 20:08 Ur Leukocyte Esterase Neg Ramin/uL (Negative) 12/26/17 20:08 Urine WBC (Auto) 8 /hpf (0-5) H 12/26/17 20:08 Urine RBC (Auto) 18 /hpf (0-3) H 12/26/17 20:08 Ur Squamous Epith Cells 9 /hpf (0-5) H 12/26/17 20:08 Urine HCG, Qual Negative (NEGATIVE) 12/26/17 20:08 Urine Opiates Screen Negative (NEGATIVE) 12/26/17 20:08 Urine Methadone Screen Negative (NEGATIVE) 12/26/17 20:08 Ur Barbiturates Screen Negative (NEGATIVE) 12/26/17 20:08 Ur Phencyclidine Scrn Negative (NEGATIVE) 12/26/17 20:08 Ur Amphetamines Screen Negative (NEGATIVE) 12/26/17 20:08 U Benzodiazepines Scrn Negative (NEGATIVE) 12/26/17 20:08 U Oth Cocaine Metabols Negative (NEGATIVE) 12/26/17 20:08 U Cannabinoids Screen Positive (NEGATIVE) H 12/26/17 20:08 - Hospital Course Hospital Course: 22 y/o F w/ PMHx of Pilonidal cyst presents to the ED at the direction of Dr. Morales. Pt was seen in office on 12/26/17 and was found to have recurrent pilonidal cyst. Pt Instructed to go to the ED for admission w/ surgery on 12/27/17. Pt c/o pain at site w/ redness and swelling. Pt denies any drainage. Per pt, this episode is worse than the previous cyst. On Saturday patient was taken to the OR for incision and drainage of pilonidal cyst abscess. Packing was used to achieve hemostasis and allow wound to continue to drain. Patient tolerated the procedure well with no immediate complications. POD1 patient was feeling much better and pain was well controlled. Leukocytosis trending downwards and cultures came back positive for Coag neg Staph. patient was stable to be discharged home POD#2 on Amoxicillin and arranged for home nursing to change packing. Patient to follow up in office w/ Dr. Morales in 1 -2 weeks. Discharge Exam - Head Exam Head Exam: ATRAUMATIC - Eye Exam Eye Exam: EOMI. absent: Scleral icterus - ENT Exam ENT Exam: Mucous Membranes Moist - Respiratory Exam Respiratory Exam: NORMAL BREATHING PATTERN. absent: Accessory Muscle Use, Respiratory Distress - Cardiovascular Exam Cardiovascular Exam: +S1, +S2. absent: Bradycardia, Tachycardia - GI/Abdominal Exam GI & Abdominal Exam: Soft. absent: Firm, Guarding, Rebound, Rigid, Tenderness - Extremities Exam Extremities exam: normal inspection - Back Exam Additional comments: Dressing C/D/I no strike through significantly less tender compared to arrival - Neurological Exam Neurological exam: Alert, Oriented x3 - Psychiatric Exam Psychiatric exam: Normal Affect - Skin Skin Exam: Warm Discharge Plan - Discharge Medications Prescriptions: Amoxicillin/Clavulanate [Augmentin 875 MG-125 MG Tab] 1 tab PO Q12 10 Days tab Docusate [Colace] 100 mg PO BID 14 Days cap - Follow Up Plan Condition: GOOD Disposition: HOME/ ROUTINE Instructions: Pilonidal Cyst (GEN) Additional Instructions: Keep area clean and dry; can shower. Packing change to be done by home nursing. If unable to arrange a time, can come to ER in fast track to get packing changed , or on Saturday can go to Dr. Morales office clinic for packing change. If fever greater than 100.4 can take over the counter tylenol. If fever persists go to the ER. Follow up w/ Dr. Morales in office if packing change is not performed by home nursing. If not follow up in 1-2 weeks for progress of abscess Referrals: Edison Morales MD [Staff Provider] -
--- NOTE | 2017-12-30 02:10 | OP ---
PROCEDURE DATE: 12/27/2017. PREOPERATIVE DIAGNOSES: 1. Pilonidal cyst abscess. 2. Cellulitis of gluteal area. POSTOPERATIVE DIAGNOSES: 1. Pilonidal cyst abscess. 2. Cellulitis of gluteal area. PROCEDURES: 1. Incision and drainage of pilonidal cyst abscess. 2. Excisional debridement of pilonidal cyst content and wall. SURGEON: Edison Morales MD BOAT DECKHAND: Amber Mitchell, PGY-1 resident. TYPE OF ANESTHESIA: Local anesthesia plus sedation. ESTIMATED BLOOD LOSS: Around 50 mL. DRAIN: None. PATHOLOGY: 1. The pus was sent for culture and sensitivity. 2. Debrided tissue and cyst content was sent for the pathology. COMPLICATIONS: None. INTRAOPERATIVE FINDINGS: The patient had large 4 x 5 cm deep abscess containing approximately 50 to 60 mL of pus and patient also had thick cyst content as well as very thick cyst wall. DESCRIPTION OF PROCEDURE: On intraoperative steps, this is an 22-year-old female who was diagnosed with pilonidal cyst abscess and diagnosed with cellulitis and the patient was admitted for the IV antibiotics preoperatively and the patient was brought to the OR, placed supine on the operating table. After induction of the anesthesia, the patient was placed in semiprone position and perineal area was prepped and draped. After the local anesthesia was injected and a vertical incision was made and cyst cavity was entered, pus was drained, pus was sent for the culture and sensitivity. The patient had thick cyst content as well as thick wall that was completely excised and debrided and hemostasis was achieved. The wound was packed with iodoform packing and dry sterile dressing was applied. The patient tolerated the procedure well. Count of the instruments and gauze was correct. There were no apparent complication. Edison Morales MD
== END 2017-12-29 16:57 | disposition home or self-care (01) | DRG 603 ==
LOC: C.ER 17:19 → C.9E 17:56 → C.5S 18:50 → C.9E 18:52 → C.6T 12-27 02:02
PROVIDERS: ADMIT Surgery Surgical Critical Care; ATTEND Surgery Surgical Critical Care
PROC: 0H98XZX Drainage of Buttock Skin, External Approach, Diagnostic (ICD-10-PCS; principal; 2017-12-27 13:30)
DX: L05.01 Pilonidal cyst with abscess (principal); F12.10 Cannabis abuse, uncomplicated; L03.317 Cellulitis of buttock; F17.210 Nicotine dependence, cigarettes, uncomplicated; Z68.37 Body mass index [BMI] 37.0-37.9, adult